=== PATIENT | female | born 1995 | race Two or more races ===

== ENCOUNTER 2017-06-03 21:11 | Emergency (ER) | payer SELFPAY ==
[~2017-06-03] VITALS: Ht 167.6 cm; Wt 63.5 kg
[2017-06-03] MEDS ORDERED: Oxycodone/Acetaminophen 5-325 ORAL ONE (21:15)
[2017-06-03] MEDS ORDERED: ACETAMINOPHEN-1 EAC1 ORAL (21:55)
[2017-06-03 22:02] VITALS: BP 125/80
--- NOTE | 2017-06-04 00:25 | Emergency Room Report ---
History of Present Illness General Chief Complaint: Lower Extremity Injury Source: Patient Present Illness HPI 22YOF BIBEMS for outer right ankle pain s/p twisting it inward walking up stairs at work. Also hit right mid larry on top step. No previous ankle/foot injury Didnt hit head, or LOC No open wounds Able to bear weight Allergies: Coded Allergies: No Known Allergies (Unverified , 06/03/17) Patient History Past Medical History: none Past Surgical History: none Pertinent Family History: none Social History: Denies: alcohol use, drug use, smoking Now: No Immunizations: UTD Reviewed Nursing Documentation: PMH: Agreed, PSxH: Agreed Nursing Documentation-PMH Past Medical History: No Stated History Review of Systems All Other Systems: negative except mentioned in HPI Physical Exam Vital Signs Date Time Temp Pulse Resp B/P Pulse Ox O2 Delivery O2 Flow Rate FiO2 06/03/17 20:56 98.4 92 18 125/80 98 Room Air Sp02 EP Interpretation: reviewed, normal General Appearance: normal inspection, well appearing, no apparent distress, alert, GCS 15, non-toxic Head: normocephalic, atraumatic Eyes: bilateral eye EOMI, bilateral eye PERRL ENT: normal ENT inspection, hearing grossly normal, normal voice Neck: normal inspection, full range of motion, supple, no bony tend Respiratory: normal inspection, lungs clear, normal breath sounds, no respiratory distress, no retraction, no wheezing Cardiovascular #1: regular rate, rhythm, no edema Gastrointestinal: normal inspection, normal bowel sounds, non tender, soft, no guarding, no hernia Genitourinary: no CVA tenderness Musculoskeletal: normal inspection, back normal, normal range of motion, Bin' s Sign negative, other - Right ankle: Mild swelling lateral malleoli. No open wounds. No reduced ROM. 2+ dorsalis pedis. Contusion to lower mid larry. Neurologic: normal inspection, alert, oriented x3, responsive, nurses medical assistants phlebotomists III-XII nml as tested, motor strength/tone normal, speech normal Psychiatric: normal inspection, judgement/insight normal, mood/affect normal Skin: normal inspection, normal color, no rash Medical Decision Making Diagnostic Impression: Primary Impression: Ankle sprain Qualified Codes: S93.401A - Sprain of unspecified ligament of right ankle, initial encounter ER Course Right ankle sprain No acute traumatic injury on ED review of films Analgesia provided RICE Crutches Non-weight bearing for 3 days PMD/Ortho followup Other X-Ray Diagnostic Results Other X-Ray Diagnostic Results : X-Ray ordered: Right tib fib # of Views/Limited Vs Complete: 2 View Indication: Pain EP Interpretation: Yes Interpretation: no dislocation, no soft tissue swelling, no fractures, nonspecific bowel gas Impression: No acute disease Interpreting ER Provider: Electronically signed by Dr Khoury PA Scribe Text Right ankle 3 views Electronically signed by Dr Khoury no acute fx, dislocation or soft tissue swelling Right foot 3 views Electronically signed by Dr Khoury no acute fx, dislocation or soft tissue swelling Last Vital Signs Date Time Temp Pulse Resp B/P Pulse Ox O2 Delivery O2 Flow Rate FiO2 06/03/17 22:02 98.4 18 125/80 98 Room Air 06/03/17 20:56 92 Disposition: HOME, SELF-CARE Condition: Improved Scripts Acetaminophen With Codeine (T#3) (TYLENOL #3 TAB*) Y Tab 1 TAB ORAL Q8H Y for For Pain for 7 Days, #30 TAB Prov: SHAWN KHOURY M.D. 06/03/17 Referrals: NOT CHOSEN IPA/,REFERRING (PCP) Patient Instructions: Ankle Sprain Additional Instructions: - Stay off for 2 days - If still with pain after 2-3 days, followup with primary doctor for Ortho referral SHAWN KHOURY M.D. Jun 04, 2017 00:25
--- NOTE | 2017-06-04 11:15 | Diagnostic Imaging Report ---
Indication: PAIN, trauma, status post fall Technique: 2 views of the right tibia and fibula Comparison: none Findings: No acute fractures. No dislocations. No radiopaque foreign body. The tip of the fibula is cut off the image but is included on the subsequent ankle radiograph Impression: Negative
--- NOTE | 2017-06-04 11:16 | Diagnostic Imaging Report ---
Indication: PAIN Technique: 3 views of the right ankle Comparison: None Findings: No acute fractures. No dislocations. Joint spaces are preserved. Impression: Negative
--- NOTE | 2017-06-04 11:16 | Diagnostic Imaging Report ---
Indication: PAIN Technique: 3 views right foot Comparison: none Findings: No acute fractures. No dislocations. The joint spaces are preserved. 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 Impression: Negative
== END 2017-06-03 22:02 | disposition home or self-care (01) ==
LOC: EDBD 21:11 → EMR 21:50
DX: S93.401A Sprain of unspecified ligament of right ankle, initial encounter (principal); W22.8XXA Striking against or struck by other objects, initial encounter; Y92.69 Other specified industrial and construction area as the place of occurrence of the external cause; Y99.0 Civilian activity done for income or pay
CPT/HCPCS: 99283